=== PATIENT | male | born 1955 | race Caucasian/White ===

== ENCOUNTER 2018-09-29 03:01 | Inpatient (IN) | payer MEDICAID, OTHER ==
[2018-09-29] VITALS (22 sets, daily range): BP systolic 108–138; BP diastolic 78–104; PULSE 95–115; RESP 15–25; Ht 165.1 cm; Wt 66.9 kg
[~2018-09-29] VITALS: Ht 165.1 cm; Wt 66.9 kg
[2018-09-29] MEDS ORDERED: ASPIRIN 325 MG TAB PO STA (03:11)
--- NOTE | 2018-09-29 03:23 | ERD ---
ER Documentation Chief Complaint Chief Complaint CP X'S 2 WEEKS HPI History obtained from patient and daughter. This is a 62-year-old male with a history of hypertension, tobacco abuse, previous alcohol abuse, and Rosy who presents to the emergency room for evaluation of chest pain. According to the daughter the patient states that he has had chest pain on and off for the past 2 weeks however over the past 3 hours of chest pain is gotten more severe. He did have 2 episodes of vomiting and diaphoresis at home. The patient localizes chest pain in the center of his chest and states he has radiation down the right arm. The patient was brought to the emergency room by his daughter and was found to have a STEMI on EKG at triage ROS All systems reviewed and are negative except as per history of present illness. Allergies Allergies: Coded Allergies: No Known Allergy (Unverified , 09/29/18) PMhx/Soc Hx Cardiac Disorders: Yes (HTN ) Hx Alcohol Use: No Hx Substance Use: No Hx Tobacco Use: Yes Smoking Status: Current every day smoker Physical Exam Vitals Vital Signs Date Temp Pulse Resp B/P (MAP) Pulse Ox O2 O2 Flow FiO2 Time Delivery Rate 09/29/18 101 25 138/114 100 Nasal 2.0 03:24 (122) Cannula 09/29/18 Nasal 2 03:15 Cannula 09/29/18 97.8 107 18 147/104 96 03:04 (118) Physical Exam INITIAL VITAL SIGNS: Reviewed by me GENERAL: The patient is well developed and appropriate for usual state of health in no apparent distress HEENT: Pupils equal, round, and reactive to light. EOMI. There is no scleral icterus. NECK: C-spine is soft and supple, there is no meningismus. There is no cervical lymphadenopathy. LUNGS: Clear to auscultation bilaterally. There are no rales, wheezes or rhonchi. HEART: Tachycardic no murmurs, clicks, rubs or gallops. ABDOMEN: Soft, non-tender, non-distended. There are bowel sounds in all four quadrants. No rebound or guarding. EXTREMITIES: There is no peripheral cyanosis or edema. No focal swelling or erythema. NEUROLOGICAL: The patient moves all four extremities with 5/5 strength. Cranial nerves II - XII are intact. Normal gait. Alert and oriented SKIN: There is no apparent rash or petechiae. HEME/LYMPHATIC: There is no evidence of excessive bruising or lymphedema. PSYCHIATRIC: The patient does not appear anxious or depressed. Result Diagram: 09/29/18 0316 09/29/18 0316 Results 24 hrs Laboratory Tests Test 09/29/18 03:16 White Blood Count 14.1 10^3/ul Red Blood Count 4.72 10^6/ul Hemoglobin 14.9 g/dl Hematocrit 44.2 % Mean Corpuscular Volume 93.6 fl Mean Corpuscular Hemoglobin 31.6 pg Mean Corpuscular Hemoglobin Concent 33.7 g/dl Red Cell Distribution Width 12.0 % Platelet Count 248 10^3/UL Mean Platelet Volume 10.2 fl Immature Granulocytes % 0.500 % Neutrophils % 79.0 % Lymphocytes % 14.2 % Monocytes % 5.4 % Eosinophils % 0.5 % Basophils % 0.4 % Nucleated Red Blood Cells % 0.0 /100WBC Immature Granulocytes # 0.070 10^3/ul Neutrophils # 11.1 10^3/ul Lymphocytes # 2.0 10^3/ul Monocytes # 0.8 10^3/ul Eosinophils # 0.1 10^3/ul Basophils # 0.1 10^3/ul Nucleated Red Blood Cells # 0.0 10^3/ul Prothrombin Time 12.7 Sec Prothrombin Time Ratio 1.0 INR International Normalized Ratio 0.94 Activated Partial Thromboplast Time 27.3 Sec Sodium Level 140 mmol/L Potassium Level 4.0 mmol/L Chloride Level 105 mmol/L Carbon Dioxide Level 26 mmol/L Anion Gap 9 Blood Urea Nitrogen 19 mg/dl Creatinine 0.94 mg/dl Est Glomerular Filtrat Rate mL/min > 60 mL/min Glucose Level 199 mg/dl Calcium Level 10.9 mg/dl Troponin I 0.969 ng/ml Current Medications Medications Dose Sig/Rickie Start Time Status Last (Trade) Ordered Route PRN Stop Time Admin Dose Reason Admin Aspirin 325 mg ONCE STAT 09/29/18 DC 09/29/18 (Aspirin) PO 03:11 09/29/18 03:21 03:13 Heparin 10,000 unit STK-MED 09/29/18 DC Sodium ONCE .ROUTE 03:37 09/29/18 (Porcine) 03:38 (Heparin (1000 Units/ml)) Lidocaine 20 ml STK-MED 09/29/18 DC (Xylocaine ONCE .ROUTE 03:37 09/29/18 1% (Mdv) 20 03:38 ml) Iodixanol 100 ml STK-MED 09/29/18 DC (Visipaque ONCE .ROUTE 03:37 09/29/18 Locm) 03:38 Heparin 1,500 ml @ STK-MED 09/29/18 DC Sodium/ ud ONCE .ROUTE 03:38 09/29/18 Sodium 03:39 Chloride Fentanyl 100 mcg STK-MED 09/29/18 DC (Sublimaze) ONCE .ROUTE 03:38 09/29/18 03:39 Midazolam 2 mg STK-MED 09/29/18 DC HCl ONCE .ROUTE 03:38 09/29/18 (Versed) 03:39 Verapamil 5 mg STK-MED 09/29/18 DC HCl ONCE .ROUTE 03:38 09/29/18 (Verapamil) 03:39 1,000 mcg STK-MED 09/29/18 DC Nitroglycerin ONCE .ROUTE 03:38 09/29/18 03:39 (Nitroglyceri n (Intracoronar y)) Procedures/MDM EKG: Rate/Rhythm: [Normal Sinus Rhythm with ST elevations in the anterior lateral leads, and inferior leads.] QRS, ST, T-waves: Anterolateral STEMI, inferior STEMI, T wave inversions in aVR Impression: Acute STEMI Chest X-ray 1V Interpreted by me: Soft Tissue: No acute abnormalities Bones: No acute abnormalities Mediastinum/Cardiac Silhouette/Lungs: [No acute abnormalities] This 62-year-old male presents to the ER for evaluation of chest pain. On my evaluation I was presented with a EKG from triage which did show STEMI. Code STEMI was immediately activated. I did speak with on-call appliance assembler, Dr. Dougherty. I have reviewed the patient's EKG with her and she agrees to come in take the patient to the Sales Supervisor. The patient was given 325 mg of aspirin, and he remains hemodynamically stable at this time. He does state that the chest pain has improved. The patient will be placed in for admission to the intensive care unit at this time under panel physician Dr. Campos. His daughter is at bedside and is aware, they are aware of this patient's critical status. 0307: EKG showing STEMI, code STEMI activated 0310: Spoke with Dr. Dougherty who agrees to take the patient to the Sales Supervisor Critical Care: Excluding all billable procedures Time: 33 minutes Treatments/Evaluations: Close monitoring and treatment of unstable vital signs, cardiorespiratory, and neurologic status, while maintaining tight balance of fluid, respiratory, and cardiac interventions. Departure Diagnosis: Primary Impression: STEMI (ST elevation myocardial infarction) Additional Impressions: Chest pain Hypertension Condition: Critical JOELLE MEJÍA DO Sep 29, 2018 03:23
[2018-09-29] MEDS ORDERED: HEPARIN 1000 UNITS/ML 10 ML INJ ONE (03:37)
[2018-09-29] MEDS ORDERED: IODIXANOL LOCM 100 ML BTL ONE (03:37)
[2018-09-29] MEDS ORDERED: LIDOCAINE 1% (MDV) 20 ML INJ ONE (03:37)
[2018-09-29] MEDS ORDERED: NITROGLYCERIN (IC) 100 MCG/ML INJ ONE ×2 (03:38→04:43)
[2018-09-29] MEDS ORDERED: VERAPAMIL 5 MG INJ ONE (03:38)
[2018-09-29] MEDS ORDERED: MIDAZOLAM 1 MG/ML 2 ML INJ ONE (03:38)
[2018-09-29] MEDS ORDERED: FENTAnyl 50 MCG/ML VIAL ONE (03:38)
[2018-09-29] MEDS ORDERED: EPTIFIBATIDE 100 ML IV ONE (04:11)
[2018-09-29] MEDS ORDERED: LORAZEPAM 2 MG INJ IV PRN ×2 (04:30→06:30)
[2018-09-29] MEDS ORDERED: morphine 2 MG INJ IV PRN ×2 (04:30→05:30)
[2018-09-29] MEDS ORDERED: ALBUTEROL/IPRATROPIUM (NEB) 3 ML AMP HHN PRN (04:30)
[2018-09-29] MEDS ORDERED: ONDANSETRON 4 MG INJ IV PRN (04:30)
[2018-09-29] MEDS ORDERED: HYDROCODONE/APAP (5/325) TAB PO PRN (04:30)
[2018-09-29] MEDS ORDERED: ACETAMINOPHEN 325 MG TAB PO PRN (04:30)
[2018-09-29] MEDS ORDERED: MAGNESIUM HYDROXIDE 30ML CUP PO PRN (04:30)
[2018-09-29] MEDS ORDERED: DOCUSATE SODIUM 100 MG CAP PO PRN (04:30)
[2018-09-29] MEDS ORDERED: NACL 0.9% 3 ML SYG IV SCH (04:30)
[2018-09-29] MEDS ORDERED: hydrALAzine 20 MG INJ IV PRN (04:30)
[2018-09-29] MEDS ORDERED: NITROGLYCERIN (SL) 0.4 MG TAB SL PRN (04:30)
[2018-09-29] MEDS ORDERED: TICAGRELOR 90 MG TABLET ONE (04:35)
[2018-09-29] MEDS ORDERED: SOD CHLORIDE 0.9% 1,000 ML IV SCH (05:16)
[2018-09-29] MEDS ORDERED: ATORVASTATIN 80 MG TAB PO ONE (05:30)
--- NOTE | 2018-09-29 05:35 | CONS ---
Assessment/Plan Assessment/Plan Hospital Course (Demo Recall) 62 yo with STEMI. Culprit vessels are occluded LAD and OM1, with small nondominant RCA which is chronically occluded. Successful angioplasty and stent to culprit LAD and OM1, and stent to severely diseased mid LCX Impression: STEMI s/p PCI HTN tobacco abuse h/o etoh abuse Recommendations: ASA, Brilinta started. Will likely transition Brilinta to clopidogrel Atorvastatin Carvedilol and lisinopril, anticipating possible low EF given the extent of this [place] Tobacco cessation Echo in the am Consultation Date/Type/Reason Admit Date/Time Sep 29, 2018 at 03:30 Date of Consultation: Sep 29, 2018 Type of Consult Cardiology Reason for Consultation STEMI Requesting Provider: JOELLE MEJÍA DO Date/Time of Note DATE: 09/29/18 TIME: 05:26 Hx of Present Illness 62 yo with about 3 weeks of intermittent chest pain, but several hours of chest pain starting about 8:30 pm last night, EKG showed ST elevations diffusely, with depression in AVR. Pt was a heavy drinker and quit about 23 days ago, has been following up at the clinic for chest pain, was given ibuprofen, then robaxin, and finally hydroxyzine for anxiety. He still smokes and has been struggling with quitting. He takes amlodipine at home for hypertension. Constitutional: no complaints Eyes: no complaints ENT: no complaints Respiratory: shortness of breath Cardiovascular: chest pain Gastrointestinal: no complaints Genitourinary: no complaints Musculoskeletal: no complaints Skin: no complaints Neurologic: no complaints Endocrine: no complaints Lymphatic: no complaints Psychological: anxiety Immunologic: no complaints Past Medical History Medical History: hypertension Medications Current Medications IV Flush (NS 3 ml) 3 ml PER PROTOCOL IV ; Start 09/29/18 at 04:30 Ondansetron HCl (Zofran Inj) 4 mg Q6H PRN IV NAUSEA/VOMITING; Start 09/29/18 at 04:30 Acetaminophen (Tylenol Tab) 650 mg Q6H PRN PO .PAIN 1-3 OR TEMP; Start 09/29/18 at 04:30 Acetaminophen/ Hydrocodone Bitart ([place] (5/325)) 1 tab Q6H PRN PO .MOD PAIN 4- 6; Start 09/29/18 at 04:30 Morphine Sulfate (morphine) 2 mg Q4H PRN IV .SEVERE PAIN 7-10; Start 09/29/18 at 04:30 Docusate Sodium (Colace) 100 mg Q12H PRN PO .CONSTIPATION; Start 09/29/18 at 04:30 Magnesium Hydroxide (Milk Of Mag) 30 ml DAILY PRN PO .CONSTIPATION; Start 09/29/18 at 04:30 Famotidine (Pepcid Iv) 20 mg Q12 IV ; Start 09/29/18 at 09:00 Lorazepam (Ativan) 0.5 mg Q6H PRN IV ANXIETY; Start 09/29/18 at 04:30 Albuterol/ Ipratropium (Duoneb) 3 ml Q4H RESP THERAPY PRN HHN SHORTNESS OF BREATH; Start 09/29/18 at 04:30 Hydralazine HCl (Apresoline) 10 mg Q6H PRN IV ELEVATED BLOOD PRESSURE; Start 09/29/18 at 04:30 Nitroglycerin (Nitroglycerin (Sl Tab) 0.4 Mg) 1 tab Q5M PRN SL ANGINA; Start 09/29/18 at 04:30 Miscellaneous Information (* Miscellaneous Pharmacy Order) Hold all Metformin ... ONCE ONCE XX ; Start 09/29/18 at 05:30; Stop 09/29/18 at 05:31 Aspirin (Halfprin) 81 mg DAILY PO ; Start 09/29/18 at 09:00; Status UNV Ticagrelor (Brilinta) 90 mg BID PO ; Start 09/29/18 at 09:00; Status UNV Morphine Sulfate (morphine) 1 mg Q1H PRN IV PAIN; Start 09/29/18 at 05:30 Carvedilol (Coreg) 3.125 mg BID PO ; Start 09/29/18 at 09:00; Status UNV Atorvastatin Calcium (Lipitor) 80 mg DAILY@21 PO ; Start 09/29/18 at 21:00; Status UNV Lisinopril (Zestril) 2.5 mg DAILY PO ; Start 09/29/18 at 09:00; Status UNV Sodium Chloride 1,000 ml @ 75 mls/hr [id number] IV ; Start 09/29/18 at 05:16; Stop 09/29/18 at 18:35 Allergies: Coded Allergies: No Known Allergy (Unverified , 09/29/18) Past Surgical History Past Surgical Hx: no surgical history Family History Significant Family History: no pertinent family hx Social History Alcohol Use: sober (was heavy drinker, quit 23 days ago) Smoking Status: Current every day smoker Exam/Review of Systems Vital Signs Vitals Vital Signs Date Temp Pulse Resp B/P (MAP) Pulse Ox O2 O2 Flow FiO2 Time Delivery Rate 09/29/18 101 25 138/114 100 Nasal 2.0 03:24 (122) Cannula 09/29/18 97.8 03:04 Exam Constitutional: alert, oriented, well developed Psych: anxiety Head: normocephalic, atraumatic Eyes: nl conjunctiva, EOMI, nl lids, nl sclera ENMT: nl external ears & nose, nl lips & teeth Neck: supple; No jvd, No bruits Respiratory: clear to auscultation (anteriorly), normal air movement Cardiovascular: regular rate and rhythm, nl pulses; No murmurs/extra sounds Gastrointestinal: soft, nl liver, spleen, non-tender Musculoskeletal: nl extremities to inspection Extremities: normal pulses Neurological: nl mental status, nl speech Skin: No rash or lesions Lymph: nl lymph nodes Labs Result Diagram: 09/29/18 0316 09/29/18 0316 Results 24hrs Laboratory Tests Test 09/29/18 03:16 White Blood Count 14.1 H Red Blood Count 4.72 Hemoglobin 14.9 Hematocrit 44.2 Mean Corpuscular Volume 93.6 Mean Corpuscular Hemoglobin 31.6 Mean Corpuscular Hemoglobin Concent 33.7 Red Cell Distribution Width 12.0 Platelet Count 248 Mean Platelet Volume 10.2 Immature Granulocytes % 0.500 H Neutrophils % 79.0 H Lymphocytes % 14.2 L Monocytes % 5.4 Eosinophils % 0.5 Basophils % 0.4 Nucleated Red Blood Cells % 0.0 Immature Granulocytes # 0.070 H Neutrophils # 11.1 H Lymphocytes # 2.0 Monocytes # 0.8 Eosinophils # 0.1 Basophils # 0.1 Nucleated Red Blood Cells # 0.0 Prothrombin Time 12.7 Prothrombin Time Ratio 1.0 INR International Normalized Ratio 0.94 Activated Partial Thromboplast Time 27.3 Sodium Level 140 Potassium Level 4.0 Chloride Level 105 Carbon Dioxide Level 26 Anion Gap 9 Blood Urea Nitrogen 19 Creatinine 0.94 Est Glomerular Filtrat Rate mL/min > 60 Glucose Level 199 Calcium Level 10.9 H Troponin I 0.969 *H Imaging Imaging EKG with sinus tach, ST elevations in anterior, inferior, subtle in lateral leads, and ST depression in aVR Medications Medications Current Medications IV Flush (NS 3 ml) 3 ml PER PROTOCOL IV ; Start 09/29/18 at 04:30 Ondansetron HCl (Zofran Inj) 4 mg Q6H PRN IV NAUSEA/VOMITING; Start 09/29/18 at 04:30 Acetaminophen (Tylenol Tab) 650 mg Q6H PRN PO .PAIN 1-3 OR TEMP; Start 09/29/18 at 04:30 Acetaminophen/ Hydrocodone Bitart ([place] (5/325)) 1 tab Q6H PRN PO .MOD PAIN 4- 6; Start 09/29/18 at 04:30 Morphine Sulfate (morphine) 2 mg Q4H PRN IV .SEVERE PAIN 7-10; Start 09/29/18 at 04:30 Docusate Sodium (Colace) 100 mg Q12H PRN PO .CONSTIPATION; Start 09/29/18 at 04:30 Magnesium Hydroxide (Milk Of Mag) 30 ml DAILY PRN PO .CONSTIPATION; Start at 04:30 Famotidine (Pepcid Iv) 20 mg Q12 IV ; Start 09/29/18 at 09:00 Lorazepam (Ativan) 0.5 mg Q6H PRN IV ANXIETY; Start 09/29/18 at 04:30 Albuterol/ Ipratropium (Duoneb) 3 ml Q4H RESP THERAPY PRN HHN SHORTNESS OF BREATH; Start 09/29/18 at 04:30 Hydralazine HCl (Apresoline) 10 mg Q6H PRN IV ELEVATED BLOOD PRESSURE; Start 09/29/18 at 04:30 Nitroglycerin (Nitroglycerin (Sl Tab) 0.4 Mg) 1 tab Q5M PRN SL ANGINA; Start 09/29/18 at 04:30 Miscellaneous Information (* Miscellaneous Pharmacy Order) Hold all Metformin ... ONCE ONCE XX ; Start 09/29/18 at 05:30; Stop 09/29/18 at 05:31 Aspirin (Halfprin) 81 mg DAILY PO ; Start 09/29/18 at 09:00; Status UNV Ticagrelor (Brilinta) 90 mg BID PO ; Start 09/29/18 at 09:00; Status UNV Morphine Sulfate (morphine) 1 mg Q1H PRN IV PAIN; Start 09/29/18 at 05:30 Carvedilol (Coreg) 3.125 mg BID PO ; Start 09/29/18 at 09:00; Status UNV Atorvastatin Calcium (Lipitor) 80 mg DAILY@21 PO ; Start 09/29/18 at 21:00; Status UNV Lisinopril (Zestril) 2.5 mg DAILY PO ; Start 09/29/18 at 09:00; Status UNV Sodium Chloride 1,000 ml @ 75 mls/hr [id number] IV ; Start 09/29/18 at 05:16; Stop 09/29/18 at 18:35 CINDY KONG Sep 29, 2018 05:35
--- NOTE | 2018-09-29 05:46 | OPR ---
Date/Time of Note Date/Time of Note DATE: 09/29/18 TIME: 05:38 Operative Report Procedure Date: Sep 29, 2018 Preoperative Diagnosis STEMI Postoperative Diagnosis STEMI, culprit vessels are LAD and OM1 Operation/Procedure Performed coronary angio, left heart cath. pci with stent to mid LAD, mid OM1, and mid LCX, conscious sedation Surgeon see signature line Assistant Pressman Tamika SILO OPERATOR Anesthesia Type: moderate sedation Estimated Blood Loss: 100 - 150 ml's Transfusion none Specimen none Grafts/Implants LCX - 2.5 x 20 mm stent OM1 - 3..0 x 32 mm stent RCA - 2.5 x 8, 2.5 x 16, 2.5 x 8 mm stents Complications none Pt Condition Post Procedure: guarded Disposition: other (ICU) Indications 62 with acute chest pain and STEMI Procedure Description Informed consent could not be obtained due to emergent nature of procedure and patient had taken several hydroxyzine tablets. He was brought to the labor relations analyst emergently. Versed and fentanyl given cautiously. Right radial artery accessed, 6F sheath placed. Verapamil, NTG, and heparin given via the sheath. Diagnostic angiography performed with [place] and JR4 catheters engaging the LM and RCA. The [place] catheter crossed the LV and pressures measured including a pullback gradient. It was decided to proceed to an angioplasty. More heparin given, and ACT checked. Integrilin 2 boluses and drip also initiated given extent of disease. A Victor M Blue wire was advanced down the LAD, and a 2.5x12 mm balloon inflated. KE[place] 3 flow established. A Luge wire was then advanced down the OM1, the balloon inflated several times and flow reestablished. The OM1 was stented with a 3.0x32 mm stent. The Luge was then redirected down the LCX, the mid LCX lesion predilated with a 2.5x20 mm balloon and then stented with a 2.5x20 mm Synergy stent. Finally the LAD lesion was addressed, and ultimately 3 stents deployed in the mid LAD. Nitro given intracoronary, angiography performed in multiple injections including a wire out shot demonstrating good apposition of stents and no dissection. Findings discussed with patient and daughter. He left the procedure room on 15L O2, in guarded condition. Findings: LM- large, normal LAD - 100% mid occlusion, small-moderate sized vessel LCX - 95% mid LCX, 100% mid large OM1. Left dominant coronary system with left sided PDA RCA - small vessel, nondominant, 100% occluded in mid portion LVEDP - 27 LVEF not assessed, due to concerns over volume CINDY KONG J Sep 29, 2018 05:46
--- NOTE | 2018-09-29 05:53 | HP ---
Date/Time of Note Date/Time of Note DATE: 09/29/18 TIME: 05:45 Assessment/Plan VTE Prophylaxis SCD applied (from Nsg): Yes Pharmacological prophylaxis: other Lines/Catheters IV Catheter Type (from Nrsg): Saline Lock Assessment/Plan Hospital Course Assessment and plan: 62 yo male with a past medical history of hypertension, tobacco abuse, previous alcohol abuse, who presented to the ER for evaluation of chest pain, found with ST elevation NJ and status post now successful angioplasty and stent to culprit LAD and OM1, and stent to severely diseased mid LCX. 1. ST elevation NJ: Again status post successful angioplasty and stent to culprit LAD and OM1, and stent to severely diseased mid LCX. -Continue current cardiac medications SEBASTIAN inhibitor, beta-aj, statin, aspirin and Brilinta as ordered by cardiology team -Follow-up further post procedure recommendations, TSH, A1c, lipid panel -Continue oxygen supplementation and try to wean down as tolerated, and duo nebs for patient's wheezing symptoms. Of note patient denies any prior history of asthma or COPD, but he does have long-standing history of smoking. 2. Smoking history: Daily smoker - counseled on cessation especially given his ST elevation NJ, nicotine patch 3. Alcohol history: Apparently he quit less than 1 month ago after admitting to drinking heavily before that -Monitor for signs of withdrawal, check ethanol blood test Result Diagram: 09/29/1831509/29/18 0316 Results 24hrs Laboratory Tests Test 09/29/18 03:16 White Blood Count 14.1 H Red Blood Count 4.72 Hemoglobin 14.9 Hematocrit 44.2 Mean Corpuscular Volume 93.6 Mean Corpuscular Hemoglobin 31.6 Mean Corpuscular Hemoglobin Concent 33.7 Red Cell Distribution Width 12.0 Platelet Count 248 Mean Platelet Volume 10.2 Immature Granulocytes % 0.500 H Neutrophils % 79.0 H Lymphocytes % 14.2 L Monocytes % 5.4 Eosinophils % 0.5 Basophils % 0.4 Nucleated Red Blood Cells % 0.0 Immature Granulocytes # 0.070 H Neutrophils # 11.1 H Lymphocytes # 2.0 Monocytes # 0.8 Eosinophils # 0.1 Basophils # 0.1 Nucleated Red Blood Cells # 0.0 Prothrombin Time 12.7 Prothrombin Time Ratio 1.0 INR International Normalized Ratio 0.94 Activated Partial Thromboplast Time 27.3 Sodium Level 140 Potassium Level 4.0 Chloride Level 105 Carbon Dioxide Level 26 Anion Gap 9 Blood Urea Nitrogen 19 Creatinine 0.94 Est Glomerular Filtrat Rate mL/min > 60 Glucose Level 199 Calcium Level 10.9 H Troponin I 0.969 *H HPI/ROS Admit Date/Time Admit Date/Time Sep 29, 2018 at 03:30 Hx of Present Illness 62 yo male with a past medical history of hypertension, tobacco abuse, previous alcohol abuse, who presented to the ER for evaluation of chest pain. According to the daughter the patient had chest pain on and off for the past 2 weeks however for the past 3 hours prior to admission it became more severe. He did have 2 episodes of vomiting and diaphoresis at home. EKG in the ER showed ST elevations diffusely, with depression in AVR. Patient diagnosed with STEMI and taken to the [facility] where he underwent successful angioplasty and stent to culprit LAD and OM1, and stent to severely diseased mid LCX. Per documentation, apparently pt was a heavy drinker and quit less than 1 month ago, has been following up at the clinic for chest pain, was given ibuprofen, then robaxin, and finally hydroxyzine for anxiety. He takes amlodipine at home for hypertension. PMH/Family/Social Past Medical History Medications Current Medications IV Flush (NS 3 ml) 3 ml PER PROTOCOL IV ; Start 09/29/18 at 04:30 Ondansetron HCl (Zofran Inj) 4 mg Q6H PRN IV NAUSEA/VOMITING; Start 09/29/18 at 04:30 Acetaminophen (Tylenol Tab) 650 mg Q6H PRN PO .PAIN 1-3 OR TEMP; Start 09/29/18 at 04:30 Acetaminophen/ Hydrocodone Bitart ([place] (5/325)) 1 tab Q6H PRN PO .MOD PAIN 4- 6; Start 09/29/18 at 04:30 Morphine Sulfate (morphine) 2 mg Q4H PRN IV .SEVERE PAIN 7-10; Start 09/29/18 at 04:30 Docusate Sodium (Colace) 100 mg Q12H PRN PO .CONSTIPATION; Start 09/29/18 at 04:30 Magnesium Hydroxide (Milk Of Mag) 30 ml DAILY PRN PO .CONSTIPATION; Start 09/29/18 at 04:30 Famotidine (Pepcid Iv) 20 mg Q12 IV ; Start 09/29/18 at 09:00 Lorazepam (Ativan) 0.5 mg Q6H PRN IV ANXIETY; Start 09/29/18 at 04:30 Albuterol/ Ipratropium (Duoneb) 3 ml Q4H RESP THERAPY PRN HHN SHORTNESS OF BREATH Last administered on 09/29/18at 05:41; Admin Dose 3 ML; Start 09/29/18 at 04:30 Hydralazine HCl (Apresoline) 10 mg Q6H PRN IV ELEVATED BLOOD PRESSURE; Start 09/29/18 at 04:30 Nitroglycerin (Nitroglycerin (Sl Tab) 0.4 Mg) 1 tab Q5M PRN SL ANGINA; Start 09/29/18 at 04:30 Aspirin (Halfprin) 81 mg DAILY PO ; Start 09/29/18 at 09:00 Ticagrelor (Brilinta) 90 mg BID PO ; Start 09/29/18 at 09:00 Morphine Sulfate (morphine) 1 mg Q1H PRN IV PAIN; Start 09/29/18 at 05:30 Carvedilol (Coreg) 3.125 mg BID PO ; Start 09/29/18 at 09:00 Atorvastatin Calcium (Lipitor) 80 mg DAILY@21 PO ; Start 09/29/18 at 21:00 Lisinopril (Zestril) 2.5 mg DAILY PO ; Start 09/29/18 at 09:00 Sodium Chloride 1,000 ml @ 75 mls/hr [id number] IV Last administered on 09/29/18at 05:37; Admin Dose 75 MLS/HR; Start 09/29/18 at 05:16; Stop 09/29/18 at 18:35 Coded Allergies: No Known Allergy (Unverified , 09/29/18) Past Surgical History Past Surgical Hx: other (Hernia) Family History Significant Family History: no pertinent family hx Social History Alcohol Use: sober (Apparently was heavy drinker, quit less than 1 month ago) Smoking Status: Current every day smoker Drug Use: none Exam/Review of Systems Vital Signs Vitals Vital Signs Date Temp Pulse Resp B/P (MAP) Pulse Ox O2 O2 Flow FiO2 Time Delivery Rate 09/29/18 101 25 138/114 100 Nasal 2.0 03:24 (122) Cannula 09/29/18 97.8 03:04 Exam Exam Gen: Lying in bed, on simple mask Head: Atraumatic. Eyes: Normal Conjunctiva. ENT: Normal External Ears, Nose and Mouth. Neck: Full range of motion. No meningismus. Resp: Slight expiratory wheezes heard bilaterally Cardio: Regular rate and rhythm. Abd: Soft, nondistended, normal bowel sounds, non tender. Ext: No lower extremity edema bilaterally Neuro: No focal deficits DERIC WHITTINGTON Sep 29, 2018 05:53
[2018-09-29] MEDS: LISINOPRIL 5 MG TAB PO SCH (09:00)
[2018-09-29] MEDS: ASPIRIN (EC) 81 MG TAB PO SCH (09:21)
[2018-09-29] MEDS: NICOTINE (21 MG/24 HR) PATCH TRANSDERM SCH (09:22)
[2018-09-29] MEDS: TICAGRELOR 90 MG TABLET PO SCH ×2 (09:30→20:54)
[2018-09-29] MEDS: FAMOTIDINE 20 MG INJ IV SCH ×2 (11:16→20:45)
--- NOTE | 2018-09-29 12:49 | PN ---
Date/Time of Note Date/Time of Note DATE: 09/29/18 TIME: 12:47 Assessment/Plan VTE Prophylaxis Risk score (from Ns)>0 risk: 12 SCD applied (from Nsg): Yes Pharmacological prophylaxis: other Lines/Catheters IV Catheter Type (from Nrs): Peripheral IV Urinary Cath still in place: No Assessment/Plan Hospital Course 62 yo male with a past medical history of hypertension, tobacco abuse, previous alcohol abuse, who presented to the ER for evaluation of chest pain, found with ST elevation TN and status post now successful angioplasty and stent to culprit LAD and OM1, and stent to severely diseased mid LCX. 1. ST elevation TN: Again status post successful angioplasty and stent to cul prit LAD and OM1, and stent to severely diseased mid LCX. -Continue current cardiac medications SEBASTIAN inhibitor, beta-aj, statin, aspirin and Brilinta as ordered by cardiology team -Follow-up further post procedure recommendations, TSH, A1c, lipid panel -Continue oxygen supplementation and try to wean down as tolerated, and duo nebs for patient's wheezing symptoms. Of note patient denies any prior history of asthma or COPD, but he does have long-standing history of smoking. 2. Smoking history: Daily smoker - counseled on cessation especially given his ST elevation TN, nicotine patch 3. Alcohol history: Apparently he quit less than 1 month ago after admitting to drinking heavily before that -Monitor for signs of withdrawal, ethanol blood test negative Prophylaxis: On aspirin and Brilinta DC planning: Follow-up on cardiology recs Result Diagram: 09/29/186 09/29/186 Results 24hrs Laboratory Tests Test 09/29/18 03:16 09/29/18 06:16 09/29/18 08:55 White Blood Count 14.1 H Red Blood Count 4.72 Hemoglobin 14.9 Hematocrit 44.2 Mean Corpuscular Volume 93.6 Mean Corpuscular Hemoglobin 31.6 Mean Corpuscular Hemoglobin Concent 33.7 Red Cell Distribution Width 12.0 Platelet Count 248 Mean Platelet Volume 10.2 Immature Granulocytes % 0.500 H Neutrophils % 79.0 H Lymphocytes % 14.2 L Monocytes % 5.4 Eosinophils % 0.5 Basophils % 0.4 Nucleated Red Blood Cells % 0.0 Immature Granulocytes # 0.070 H Neutrophils # 11.1 H Lymphocytes # 2.0 Monocytes # 0.8 Eosinophils # 0.1 Basophils # 0.1 Nucleated Red Blood Cells # 0.0 Prothrombin Time 12.7 Prothrombin Time Ratio 1.0 INR International Normalized Ratio 0.94 Activated Partial Thromboplast Time 27.3 Sodium Level 140 Potassium Level 4.0 Chloride Level 105 Carbon Dioxide Level 26 Anion Gap 9 Blood Urea Nitrogen 19 Creatinine 0.94 Est Glomerular Filtrat Rate mL/min > 60 Glucose Level 199 Calcium Level 10.9 H Troponin I 0.969 *H 364.000 *H Hemoglobin A1c 6.3 H Free Thyroxine 1.24 Ethyl Alcohol Level < 10.0 H Creatine Kinase Pending Creatine Kinase Index Pending Creatinine Kinase MB (Mass) 247.00 H Subjective 24 Hr Interval Summary Constitutional: no complaints Exam/Review of Systems Exam Vitals Vital Signs Date Temp Pulse Resp B/P (MAP) Pulse Ox O2 O2 Flow FiO2 Time Delivery Rate 09/29/18 96 12:00 09/29/18 17 117/90 99 Nasal 09:00 (99) Cannula 09/29/18 98.1 07:00 09/29/18 6.0 06:30 09/29/18 100 05:35 Intake and Output 09/28/18 09/28/18 09/29/18 1515:00 23:00 07:00 IntakeIntake Total 172 ml OutputOutput Total 250 ml BalanceBalance -78 ml Constitutional: alert, oriented Respiratory: clear to auscultation Cardiovascular: regular rate and rhythm Gastrointestinal: soft; No distended Musculoskeletal: nl extremities to inspection Results Results 24hrs Laboratory Tests Test 09/29/18 03:16 09/29/18 06:16 09/29/18 08:55 White Blood Count 14.1 H Red Blood Count 4.72 Hemoglobin 14.9 Hematocrit 44.2 Mean Corpuscular Volume 93.6 Mean Corpuscular Hemoglobin 31.6 Mean Corpuscular Hemoglobin Concent 33.7 Red Cell Distribution Width 12.0 Platelet Count 248 Mean Platelet Volume 10.2 Immature Granulocytes % 0.500 H Neutrophils % 79.0 H Lymphocytes % 14.2 L Monocytes % 5.4 Eosinophils % 0.5 Basophils % 0.4 Nucleated Red Blood Cells % 0.0 Immature Granulocytes # 0.070 H Neutrophils # 11.1 H Lymphocytes # 2.0 Monocytes # 0.8 Eosinophils # 0.1 Basophils # 0.1 Nucleated Red Blood Cells # 0.0 Prothrombin Time 12.7 Prothrombin Time Ratio 1.0 INR International Normalized Ratio 0.94 Activated Partial Thromboplast Time 27.3 Sodium Level 140 Potassium Level 4.0 Chloride Level 105 Carbon Dioxide Level 26 Anion Gap 9 Blood Urea Nitrogen 19 Creatinine 0.94 Est Glomerular Filtrat Rate mL/min > 60 Glucose Level 199 Calcium Level 10.9 H Troponin I 0.969 *H 364.000 *H Hemoglobin A1c 6.3 H Free Thyroxine 1.24 Ethyl Alcohol Level < 10.0 H Creatine Kinase Pending Creatine Kinase Index Pending Creatinine Kinase MB (Mass) 247.00 H Medications Medication Current Medications IV Flush (NS 3 ml) 3 ml PER PROTOCOL IV ; Start 09/29/18 at 04:30 Ondansetron HCl (Zofran Inj) 4 mg Q6H PRN IV NAUSEA/VOMITING; Start 09/29/18 at 04:30 Acetaminophen (Tylenol Tab) 650 mg Q6H PRN PO .PAIN 1-3 OR TEMP; Start 09/29/18 at 04:30 Acetaminophen/ Hydrocodone Bitart ([place] (5/325)) 1 tab Q6H PRN PO .MOD PAIN 4- 6; Start 09/29/18 at 04:30 Morphine Sulfate (morphine) 2 mg Q4H PRN IV .SEVERE PAIN 7-10 Last administered on 09/29/18at 11:16; Admin Dose 2 MG; Start 09/29/18 at 04:30 Docusate Sodium (Colace) 100 mg Q12H PRN PO .CONSTIPATION; Start 09/29/18 at 04: 30 Magnesium Hydroxide (Milk Of Mag) 30 ml DAILY PRN PO .CONSTIPATION; Start 09/29/18 at 04:30 Famotidine (Pepcid Iv) 20 mg Q12 IV Last administered on 09/29/18at 11:16; Admin Dose 20 MG; Start 09/29/18 at 09:00 Albuterol/ Ipratropium (Duoneb) 3 ml Q4H RESP THERAPY PRN HHN SHORTNESS OF BREATH Last administered on 09/29/18at 05:41; Admin Dose 3 ML; Start 09/29/18 at 04:30 Hydralazine HCl (Apresoline) 10 mg Q6H PRN IV ELEVATED BLOOD PRESSURE; Start 09/29/18 at 04:30 Nitroglycerin (Nitroglycerin (Sl Tab) 0.4 Mg) 1 tab Q5M PRN SL ANGINA; Start 09/29/18 at 04:30 Aspirin (Halfprin) 81 mg DAILY PO Last administered on 09/29/18at 09:21; Admin Dose 81 MG; Start 09/29/18 at 09:00 Ticagrelor (Brilinta) 90 mg BID PO Last administered on 09/29/18at 09:30; Admin Dose 90 MG; Start 09/29/18 at 09:00 Morphine Sulfate (morphine) 1 mg Q1H PRN IV PAIN; Start 09/29/18 at 05:30 Carvedilol (Coreg) 3.125 mg BID PO Last administered on 09/29/18 09:22; Admin Dose 3.125 MG; Start 09/29/18 at 09:00 Atorvastatin Calcium (Lipitor) 80 mg DAILY@21 PO ; Start 09/29/18 at 21:00 Lisinopril (Zestril) 2.5 mg DAILY PO ; Start 09/29/18 at 09:00 Sodium Chloride 1,000 ml @ 75 mls/hr [id number] IV Last administered on 09/29/18at 05:37; Admin Dose 75 MLS/HR; Start 09/29/18 at 05:16; Stop 09/29/18 at 18:35 Nicotine (Nicoderm 21 Mg/ 24hr) 1 patch DAILY TRANSDERM Last administered on 09/29/18at 09:22; Admin Dose 1 PATCH; Start 09/29/18 at 09:00 Lorazepam (Ativan) 1 mg Q1H PRN IV CONTROL WITHDRAWAL SYMPTOMS; Start 09/29/18 at 06:30 GURWINDER VALERA Sep 29, 2018 12:49
--- NOTE | 2018-09-29 18:04 | RADRPT ---
Echocardiogram Report Patient Name: SENTHIL WOODPatient ID: [id number] : 1955 (62y 11m)Study Date: 09/29/2018 7:38:20 AM Gender: [place]cession #: [id number] Tech: BEVERLY Location: [facility] Ref.Physician: LATISHA GONZALEZ Height(Cm): 165 BSA: 1.75Weight(Kg): 66.7 Quality: AdequateOrder Physician: LATISHA GONZALEZ Account #: Procedures: Echocardiographic Report: Transthoracic echocardiogram examination. Indications: PA. Measurements: 2D/M Mode Doppler Measurement Value Normal Range Measurement Value Normal Range LA Volume 43.7 [ 18.0 - 58.0 ] ml AV Peak Tahir 1.2 [ 100.0 - 170.0 ] cm/sec LA Volume Index 25 [ 16 - 34 ] ml/m2 AV Peak PG 5.0 [ 2.0 - 9.0 ] mmHg LVOT Peak Tahir 0.8 [ 70.0 - 110.0 ] cm/sec LVOT Peak PG 2.0 [ 2.0 - 6.0 ] mmHg MV E Peak Tahir 0.8 [ 60.0 - 130.0 ] cm/sec MV A Peak Tahir 0.4 [ 100.0 - 120.0 ] cm/sec MV E/A 2.1 [ 0.8 - 1.5 ] ratio MV PHT 31.0 [ 20.0 - 100.0 ] msec MV Decel Time 106 [ 104 - 258 ] msec MV Decel [place] 8 Lat E` Tahir 0.1 [ 10.0 - 15.0 ] cm/sec Lateral E/E` 14.0 [ 1.0 - 2.0 ] ratio Med E` Tahir 0.1 cm/sec Septal E/E` 18.3 [ 1.0 - 8.0 ] ratio MV E/A 2.1 [ 0.8 - 1.5 ] ratio MV PHT 31.0 [ 20.0 - 100.0 ] msec MVA PHT 7.1 [ 2.0 - 4.0 ] cm2 TR Peak Tahir 3.0 [ 100.0 - 280.0 ] cm/sec TR Peak PG 35.0 mmHg RVSP 38.0 [ 10.0 - 36.0 ] mmHg RA Pressure 3.0 mmHg Findings: Left Ventricle: Normal left ventricular cavity size. Severe left ventricular systolic dysfunction. Tissue Doppler/Mitral Doppler indices are consistent with restrictive physiology with markedly elevated left atrial pressure (Stage III-IV diastolic dysfunction). Normal left ventricular wall thickness. The left ventricular ejection fraction is visually estimated at 32 %. These segments of the LV are akinetic: mid anterior segment, anterior apex segment, lateral mid segment, lateral apex segment, posterior mid segment, inferior mid segment, inferior apex segment, mid septum segment and anteroseptum mid segment. Right Ventricle: Normal right ventricular size. Normal right ventricular systolic function. Left Atrium: The left atrium is normal in size and appearance. Right Atrium: The right atrium is normal in size and appearance. Atrial Septum: Normal atrial septum. Mitral Valve: Normal appearance of the mitral valve leaflets. Trace to mild mitral regurgitation. Aortic Valve: Normal appearance and function of the aortic valve, imaged from apical views only. No hemodynamically significant aortic stenosis by Doppler. No aortic regurgitation. Tricuspid Valve: Normal appearance and function of the tricuspid valve with trace physiologic regurgitation. The estimated Peak RVSP is 38 mmHg. Pulmonic Valve: The pulmonic valve is not well visualized. Pericardium: Normal pericardium with no significant pericardial effusion. Aorta: Normal aortic root imaged from apicals only. IVC: Normal inferior vena cava appearance. Pulmonary Artery: Pulmonary artery is not well visualized. Conclusions: Severely reduced left ventricular systolic function with multivessel distribution regional wall motion abnormalities. Restrictive diastolic function. Trace tricuspid regurgitation and mild pulmonary hypertension. Electronically Signed By: Latisha Gonzalez 2018-09-29 18:03:55 PDT
[2018-09-29] MEDS ORDERED: FUROSEMIDE 20 MG INJ IV ONE (18:30)
[2018-09-29] MEDS: ATORVASTATIN 80 MG TAB PO SCH (20:45)
[2018-09-30] VITALS (11 sets, daily range): BP systolic 92–103; BP diastolic 67–72; PULSE 91–107; RESP 16–20
--- NOTE | 2018-09-30 03:35 | CONS ---
Assessment/Plan Assessment/Plan Hospital Course (Demo Recall) 62 yo with STEMI. Culprit vessels are occluded LAD and OM1, with small nondominant RCA which is chronically occluded. Successful angioplasty and stent to culprit LAD and OM1, and stent to severely diseased mid LCX Impression: STEMI s/p PCI HTN tobacco abuse h/o etoh abuse Recommendations: ASA, Brilinta started. Will transition Brilinta to clopidogrel. Last dose of Brilinta was last night, clopidogrel 600 mg to be given at noon tomorrow Atorvastatin high intensity 80 mg, awaiting lipid panel in the am Carvedilol and lisinopril, will add spironolactone, all for low ef/ischemic cardiomyopathy Tobacco cessation If BP stable, and follow-up arranged for patient, he may be discharged in the afternoon. I can see the patient once in my office in one week post [place] Needs counseling on lifestyle, smoking cessation, diet Consultation Date/Type/Reason Admit Date/Time Sep 29, 2018 at 03:30 Initial Consult Date 09/29/18 Type of Consult Cardiology Requesting Provider: JOELLE MEJÍA DO Date/Time of Note DATE: 09/30/18 TIME: 03:27 24 HR Interval Summary Free Text/Dictation No chest pain, no wrist pain Exam/Review of Systems Vital Signs Vitals Vital Signs Date Temp Pulse Resp B/P (MAP) Pulse Ox O2 O2 Flow FiO2 Time Delivery Rate 09/30/18 100 00:00 09/29/18 98.4 20 110/83 98 Nasal 2.0 23:33 (92) Cannula 09/29/18 100 05:35 Intake and Output 09/29/18 09/29/18 09/30/18 1515:00 23:00 07:00 IntakeIntake Total 950 ml 725 ml OutputOutput Total 350 ml 400 ml BalanceBalance 600 ml 325 ml Exam Constitutional: alert, oriented Psych: no complaints, nl mood/affect Head: normocephalic, atraumatic Eyes: EOMI, nl lids ENMT: nl external ears & nose Neck: No jvd, No bruits Respiratory: clear to auscultation, normal air movement Cardiovascular: regular rate and rhythm; No murmurs/extra sounds Gastrointestinal: soft, non-tender Musculoskeletal: nl extremities to inspection Extremities: normal pulses (right wrist site intact, normal radial pulse); No edema Neurological: nl mental status, nl speech Skin: nl turgor Labs Result Diagram: 09/29/18 0316 09/29/18 0316 Results 24hrs Laboratory Tests Test 09/29/18 06:16 09/29/18 08:55 09/29/18 15:33 Hemoglobin A1c 6.3 H Free Thyroxine 1.24 Ethyl Alcohol Level < 10.0 H Creatine Kinase 6334 H 3895 H Creatine Kinase Index 3.9 4.5 Creatinine Kinase MB (Mass) 247.00 H 174.00 H Troponin I 364.000 *H 222.000 *H Imaging Imaging LVEF 32% with regional wall motion abnormalities Medications Medications Current Medications IV Flush (NS 3 ml) 3 ml PER PROTOCOL IV ; Start 09/29/18 at 04:30 Ondansetron HCl (Zofran Inj) 4 mg Q6H PRN IV NAUSEA/VOMITING; Start 09/29/18 at 04:30 Acetaminophen (Tylenol Tab) 650 mg Q6H PRN PO .PAIN 1-3 OR TEMP Last administered on 09/29/18at 20:45; Admin Dose 650 MG; Start 09/29/18 at 04:30 Acetaminophen/ Hydrocodone Bitart ([place] (5/325)) 1 tab Q6H PRN PO .MOD PAIN 4- 6; Start 09/29/18 at 04:30 Morphine Sulfate (morphine) 2 mg Q4H PRN IV .SEVERE PAIN 7-10 Last administered on 09/29/18at 11:16; Admin Dose 2 MG; Start 09/29/18 at 04:30 Docusate Sodium (Colace) 100 mg Q12H PRN PO .CONSTIPATION; Start 09/29/18 at 04:30 Magnesium Hydroxide (Milk Of Mag) 30 ml DAILY PRN PO .CONSTIPATION; Start 09/29/18 at 04:30 Famotidine (Pepcid Iv) 20 mg Q12 IV Last administered on 09/29/18at 20:45; Admin Dose 20 MG; Start 09/29/18 at 09:00 Albuterol/ Ipratropium (Duoneb) 3 ml Q4H RESP THERAPY PRN HHN SHORTNESS OF BREATH Last administered on 09/29/18at 05:41; Admin Dose 3 ML; Start 09/29/18 at 04:30 Hydralazine HCl (Apresoline) 10 mg Q6H PRN IV ELEVATED BLOOD PRESSURE; Start 09/29/18 at 04:30 Nitroglycerin (Nitroglycerin (Sl Tab) 0.4 Mg) 1 tab Q5M PRN SL ANGINA; Start 09/29/18 at 04:30 Aspirin (Halfprin) 81 mg DAILY PO Last administered on 09/29/18 09:21; Admin Dose 81 MG; Start 09/29/18 at 09:00 Ticagrelor (Brilinta) 90 mg BID PO Last administered on 09/29/18 20:54; Admin Dose 90 MG; Start 09/29/18 at 09:00 Morphine Sulfate (morphine) 1 mg Q1H PRN IV PAIN; Start 09/29/18 at 05:30 Carvedilol (Coreg) 3.125 mg BID PO Last administered on 09/29/18 20:44; Admin Dose 3.125 MG; Start 09/29/18 at 09:00 Atorvastatin Calcium (Lipitor) 80 mg DAILY@21 PO Last administered on 09/29/18 20:45; Admin Dose 80 MG; Start 09/29/18 at 21:00 Lisinopril (Zestril) 2.5 mg DAILY PO Last administered on 09/29/18 09:00; Admin Dose 2.5 MG; Start 09/29/18 at 09:00 Nicotine (Nicoderm 21 Mg/ 24hr) 1 patch DAILY TRANSDERM Last administered on 09/29/18 09:22; Admin Dose 1 PATCH; Start 09/29/18 at 09:00 Lorazepam (Ativan) 1 mg Q1H PRN IV CONTROL WITHDRAWAL SYMPTOMS Last administered on 09/29/18 14:36; Admin Dose 1 MG; Start 09/29/18 at 06:30 Spironolactone (Aldactone) 25 mg DAILY PO ; Start 09/30/18 at 09:00 CINDY KONG Sep 30, 2018 03:35
[2018-09-30] MEDS: FAMOTIDINE 20 MG INJ IV SCH ×2 (10:28→20:40)
[2018-09-30] MEDS: SPIRONOLACTONE 25 MG TAB PO SCH (10:29)
[2018-09-30] MEDS: ASPIRIN (EC) 81 MG TAB PO SCH (10:29)
[2018-09-30] MEDS: NICOTINE (21 MG/24 HR) PATCH TRANSDERM SCH (10:29)
[2018-09-30] MEDS: LISINOPRIL 5 MG TAB PO SCH (10:30)
--- NOTE | 2018-09-30 10:54 | RADRPT ---
Vent Rate: 108 bpm RR Interval: 552 msec CA Interval: 135 msec QRS Duration: 90 msec QT Interval: 372 msec QTC Interval: 501 msec P-R-T [place]: 70 - 84 - 225 degrees Sinus tachycardia...rate> 99 LAE, consider biatrial enlargement...P>80mS <-.15mV V1&>.25mV limb lds Probable anterolateral infarct, acute...ST >0.15mV, V2-V6,I,aVL Prolonged QT interval...QTc >500mS Electronically Signed By: Regis Thomas
[2018-09-30] MEDS ORDERED: CLOPIDOGREL 75 MG TAB PO ONE (12:00)
[2018-09-30] MEDS: ATORVASTATIN 80 MG TAB PO SCH (20:40)
[2018-10-01] VITALS (9 sets, daily range): BP systolic 95–104; BP diastolic 66–71; PULSE 82–106; RESP 18–20
[2018-10-01] MEDS: ASPIRIN (EC) 81 MG TAB PO SCH (08:10)
[2018-10-01] MEDS: SPIRONOLACTONE 25 MG TAB PO SCH (08:10)
[2018-10-01] MEDS: LISINOPRIL 5 MG TAB PO SCH ×2 (08:11→17:32)
[2018-10-01] MEDS: NICOTINE (21 MG/24 HR) PATCH TRANSDERM SCH (08:11)
[2018-10-01] MEDS ORDERED: FAMOTIDINE 20 MG TAB PO SCH (09:00)
[2018-10-01] MEDS ORDERED: LISI-313 PO (16:36)
[2018-10-01] MEDS ORDERED: CLOP75TA27 PO (16:36)
[2018-10-01] MEDS ORDERED: ASPI-817 PO (16:36)
[2018-10-01] MEDS ORDERED: CARV3.1260 PO (16:36)
[2018-10-01] MEDS ORDERED: ATOR-2 PO (16:36)
--- NOTE | 2018-10-01 16:39 | PDOCDIS ---
Discharge Instructions DIAGNOSIS Discharge Diagnosis Myocardial infarction CONDITION [id number] Patient Condition: [id number] Stable FOLLOW UP/APPOINTMENTS Follow-up Plan Take your medications every day as prescribed. It is very important to never miss a dose. You pills are available to filler picker at [facility] in [place] Call and make an appointment to see Dr Gonzalez from cardiology in the next few weeks. Her phone number is Return to the hospital if you have any concerning symptoms VALERIY MCWILLIAMS MD Oct 01, 2018 16:39
--- NOTE | 2018-10-01 16:41 | DS ---
Date/Time of Note Date/Time of Note DATE: 10/01/18 TIME: 16:39 Discharge Summary Admission/Discharge Info Admit Date/Time Sep 29, 2018 at 03:30 Discharge Date/Time Discharge Diagnosis Myocardial infarction Patient Condition: Stable Hospital Course The patient presented with STEMI. He was taken urgently to the earth science laboratory technician by Dr Gonzalez who performed PCI with stent to mid LAD, mid OM1, and mid LCX under conscious sedation. He was treated wtih aspirin and brillinta. Brillinta was transitioned to plavix at discharge. TTE showed reduced ejection fraction. He was prescribed aspirin, plavix, lisinopril, carvedilol and atorvastatin at discharge. He will follow up with Dr Gonzalez in clinic Follow-up Plan Take your medications every day as prescribed. It is very important to never miss a dose. You pills are available to warp picker at [facility] in [place] Call and make an appointment to see Dr Gonzalez from cardiology in the next few weeks. Her phone number is Return to the hospital if you have any concerning symptoms Primary Care Provider Care Physician No Primary Pending Labs Laboratory Tests Test 10/01/18 05:30 White Blood Count 10.9 10^3/ul (4.8-10.8) Red Blood Count 4.13 10^6/ul (4.70-6.10) Hemoglobin 13.1 g/dl (14.0-18.0) Hematocrit 38.9 % (42.0-52.0) Mean Corpuscular Volume 94.2 fl (82.0-101.0) Mean Corpuscular Hemoglobin 31.7 pg (29.0-33.0) Mean Corpuscular Hemoglobin Concent 33.7 g/dl (32.0-37.0) Red Cell Distribution Width 12.3 % (11.5-14.5) Platelet Count 185 10^3/UL (140-415) Mean Platelet Volume 11.1 fl (7.4-10.4) Immature Granulocytes % 0.500 % (0.001-0.429) Neutrophils % 51.0 % (39.0-77.0) Lymphocytes % 36.9 % (15.0-51.0) Monocytes % 9.2 % (0.0-11.0) Eosinophils % 1.9 % (0.0-7.0) Basophils % 0.5 % (0.0-2.0) Nucleated Red Blood Cells % 0.0 /100WBC (0.0-0.0) Immature Granulocytes # 0.050 10^3/ul (0.0-0.031) Neutrophils # 5.6 10^3/ul (1.6-7.5) Lymphocytes # 4.0 10^3/ul (0.8-2.9) Monocytes # 1.0 10^3/ul (0.3-0.9) Eosinophils # 0.2 10^3/ul (0.0-0.5) Basophils # 0.1 10^3/ul (0.0-0.1) Nucleated Red Blood Cells # 0.0 10^3/ul (0.0-0.0) Sodium Level 139 mmol/L (135-144) Potassium Level 4.3 mmol/L (3.5-5.1) Chloride Level 106 mmol/L (97-110) Carbon Dioxide Level 27 mmol/L (21-31) Anion Gap 6 (5-13) Blood Urea Nitrogen 26 mg/dl (7-20) Creatinine 0.78 mg/dl (0.61-1.24) Est Glomerular Filtrat Rate mL/min > 60 mL/min (>60) Glucose Level 133 mg/dl (70-220) Calcium Level 10.2 mg/dl (8.4-10.2) VALERIY MCWILLIAMS MD Oct 01, 2018 16:41
--- NOTE | 2018-10-01 17:02 | CONS ---
Assessment/Plan Assessment/Plan Hospital Course (Demo Recall) 62 yo with STEMI. Culprit vessels are occluded LAD and OM1, with small nondominant RCA which is chronically occluded. Successful angioplasty and stent to culprit LAD and OM1, and stent to severely diseased mid LCX Impression: STEMI s/p PCI to LAD, OM1, and LCX with a total of 5 drug-eluting stents Ischemic cardiomyopathy HTN tobacco abuse h/o etoh abuse Recommendations: ASA, clopidogrel Carvedilol, lisinopril, and spironolactone Atorvastatin 80 mg Family at bedside, reiterated importance of healthy diet, smoking cessation, remaining completely abstinent from alcohol Will see him in my office in one week. He is uninsured and I will not charge him for the appointment, as I don't want him lost to follow-up Consultation Date/Type/Reason Admit Date/Time Sep 29, 2018 at 03:30 Initial Consult Date 09/29/18 Type of Consult Cardiology Requesting Provider: JOELLE MEJÍA DO Date/Time of Note DATE: 10/01/18 TIME: 16:56 24 HR Interval Summary Free Text/Dictation Walked in hallway with PT. No chest pain, no wrist pain. Exam/Review of Systems Vital Signs Vitals Vital Signs Date Temp Pulse Resp B/P (MAP) Pulse Ox O2 O2 Flow FiO2 Time Delivery Rate 10/01/18 93 16:13 10/01/18 98.6 20 103/68 94 Room Air 15:14 (80) 10/01/18 2.0 07:31 09/29/18 100 05:35 Intake and Output 09/30/18 09/30/18 10/01/18 1515:00 23:00 07:00 IntakeIntake Total 720 ml 150 ml BalanceBalance 720 ml 150 ml Exam Constitutional: alert, oriented, well developed Psych: no complaints, nl mood/affect Head: normocephalic, atraumatic Eyes: EOMI, nl lids ENMT: No nl lips & teeth (poor dentition) Neck: supple; No jvd, No bruits Respiratory: clear to auscultation, normal air movement Cardiovascular: regular rate and rhythm, nl pulses (right radial site intact, good pulse, hand warm); No jugular venous distention (JVD) Gastrointestinal: soft, non-tender Musculoskeletal: nl extremities to inspection Extremities: normal pulses; No edema Neurological: nl mental status, nl speech Skin: nl turgor Labs Result Diagram: 10/01/18 0530 10/01/18 0530 Results 24hrs Laboratory Tests Test 10/01/18 05:30 White Blood Count 10.9 H Red Blood Count 4.13 L Hemoglobin 13.1 L Hematocrit 38.9 L Mean Corpuscular Volume 94.2 Mean Corpuscular Hemoglobin 31.7 Mean Corpuscular Hemoglobin Concent 33.7 Red Cell Distribution Width 12.3 Platelet Count 185 Mean Platelet Volume 11.1 H Immature Granulocytes % 0.500 H Neutrophils % 51.0 Lymphocytes % 36.9 Monocytes % 9.2 Eosinophils % 1.9 Basophils % 0.5 Nucleated Red Blood Cells % 0.0 Immature Granulocytes # 0.050 H Neutrophils # 5.6 Lymphocytes # 4.0 H Monocytes # 1.0 H Eosinophils # 0.2 Basophils # 0.1 Nucleated Red Blood Cells # 0.0 Sodium Level 139 Potassium Level 4.3 Chloride Level 106 Carbon Dioxide Level 27 Anion Gap 6 Blood Urea Nitrogen 26 H Creatinine 0.78 Est Glomerular Filtrat Rate mL/min > 60 Glucose Level 133 Calcium Level 10.2 Medications Medications Current Medications IV Flush (NS 3 ml) 3 ml PER PROTOCOL IV ; Start 09/29/18 at 04:30 Ondansetron HCl (Zofran Inj) 4 mg Q6H PRN IV NAUSEA/VOMITING; Start 09/29/18 at 04:30 Acetaminophen (Tylenol Tab) 650 mg Q6H PRN PO .PAIN 1-3 OR TEMP Last administered on 09/29/18at 20:45; Admin Dose 650 MG; Start 09/29/18 at 04:30 Acetaminophen/ Hydrocodone Bitart ([place] (5/325)) 1 tab Q6H PRN PO .MOD PAIN 4- 6 Last administered on 09/30/18at 20:48; Admin Dose 1 TAB; Start 09/29/18 at 04:30 Morphine Sulfate (morphine) 2 mg Q4H PRN IV .SEVERE PAIN 7-10 Last administered on 09/29/18at 11:16; Admin Dose 2 MG; Start 09/29/18 at 04:30 Docusate Sodium (Colace) 100 mg Q12H PRN PO .CONSTIPATION; Start 09/29/18 at 04:30 Magnesium Hydroxide (Milk Of Mag) 30 ml DAILY PRN PO .CONSTIPATION; Start 09/29/18 at 04:30 Albuterol/ Ipratropium (Duoneb) 3 ml Q4H RESP THERAPY PRN HHN SHORTNESS OF BREATH Last administered on 09/29/18 05:41; Admin Dose 3 ML; Start 09/29/18 at 04:30 Hydralazine HCl (Apresoline) 10 mg Q6H PRN IV ELEVATED BLOOD PRESSURE; Start 09/29/18 at 04:30 Nitroglycerin (Nitroglycerin (Sl Tab) 0.4 Mg) 1 tab Q5M PRN SL ANGINA; Start 09/29/18 at 04:30 Aspirin (Halfprin) 81 mg DAILY PO Last administered on 10/01/18 08:10; Admin Dose 81 MG; Start 09/29/18 at 09:00 Morphine Sulfate (morphine) 1 mg Q1H PRN IV PAIN; Start 09/29/18 at 05:30 Carvedilol (Coreg) 3.125 mg BID PO Last administered on 09/30/18 22:21; Admin Dose 3.125 MG; Start 09/29/18 at 09:00 Atorvastatin Calcium (Lipitor) 80 mg DAILY@21 PO Last administered on 09/30/18 20:40; Admin Dose 80 MG; Start 09/29/18 at 21:00 Lisinopril (Zestril) 2.5 mg DAILY PO Last administered on 09/30/18 10:30; Admin Dose 2.5 MG; Start 09/29/18 at 09:00 Nicotine (Nicoderm 21 Mg/ 24hr) 1 patch DAILY TRANSDERM Last administered on 10/01/18 08:11; Admin Dose 1 PATCH; Start 09/29/18 at 09:00 Lorazepam (Ativan) 1 mg Q1H PRN IV CONTROL WITHDRAWAL SYMPTOMS Last administered on 09/29/18 14:36; Admin Dose 1 MG; Start 09/29/18 at 06:30 Spironolactone (Aldactone) 25 mg DAILY PO Last administered on 10/01/18 08:10; Admin Dose 25 MG; Start 09/30/18 at 09:00 Famotidine (Pepcid) 20 mg Q12 PO Last administered on 10/01/18 08:10; Admin Dose 20 MG; Start 10/01/18 at 09:00 Clopidogrel Bisulfate (plaVIX) 75 mg DAILY PO ; Start 10/01/18 at 17:00; Status UNV CINDY KONG Oct 01, 2018 17:02
[2018-10-01] MEDS ORDERED: CLOPIDOGREL 75 MG TAB PO SCH (17:30)
== END 2018-10-01 18:00 | disposition home or self-care (01) | DRG 247 ==
LOC: E/R 03:01 → REC 03:30 → ICU 05:25 → 6WM 15:47
PROVIDERS: ADMIT Hospitalist; ATTEND Hospitalist
PROC: B211YZZ Fluoroscopy of Multiple Coronary Arteries using Other Contrast (ICD-10-PCS; 2018-09-29)
PROC: 3E073GC Introduction of Other Therapeutic Substance into Coronary Artery, Percutaneous Approach (ICD-10-PCS; 2018-09-29)
PROC: 027236Z Dilation of Coronary Artery, Three Arteries with Three Drug-eluting Intraluminal Devices, Percutaneous Approach (ICD-10-PCS; principal; 2018-09-29 03:30)
PROC: 4A023N7 Measurement of Cardiac Sampling and Pressure, Left Heart, Percutaneous Approach (ICD-10-PCS; 2018-09-29 03:30)
DX: I21.3 ST elevation (STEMI) myocardial infarction of unspecified site (principal); I25.5 Ischemic cardiomyopathy; I10 Essential (primary) hypertension; F17.200 Nicotine dependence, unspecified, uncomplicated; F10.21 Alcohol dependence, in remission; F41.9 Anxiety disorder, unspecified
CPT/HCPCS: 36415; 71045; 80048; 80061; 80307; 82550; 82553; 83036; 83735; 84100; 84439; 84443; 84484; 85025; 85610; 85730; 92928; 92929; 93005; 93306; 93458; 94664; 97116; 97161; C1725; C1874; C1887; C9606; J1327; J1644; J1940; J2060; J2250; J2270; J3010; Q9967